=== PATIENT | male | born 1995 | race Caucasian/White ===

== ENCOUNTER 2025-08-10 16:16 | Emergency (ER) | payer OTHER, SELFPAY ==
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
[2025-08-10 16:22] VITALS: BP 163/83; PULSE 87; RESP 18; TEMP 36.7; O2SAT 96
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
--- NOTE | 2025-08-10 19:03 | PC.NURSE ---
PER EDP, C-collar removed.
[2025-08-10] MEDS: TETANUS,DIPHTHERIA,AC PERTUSSIS ADULT (0.5 ML) BOOSTRIX IM (19:33)
== END 2025-08-10 19:39 | disposition home or self-care (01) ==
PROVIDERS: Emergency Provider Registered Nurse; PCP Family Medicine
DX: S01.511A Laceration without foreign body of lip, initial encounter (principal); W22.09XA Striking against other stationary object, initial encounter; Z23 Encounter for immunization
CPT/HCPCS: 12011; 70450; 72125; 90471; 90715; 99284